=== PATIENT | female | born 1950 | race Native Hawaiian/Other Pacific Islander ===

== ENCOUNTER 2016-10-28 14:01 | Outpatient (CLI) | payer OTHER ==
[~2016-10-28 14:01] MED LIST: CARV3.12 PO; DIOVAN HC1 PO; FURO40TA93 PO; HYDRALAZINE25 MG PO; LEVO0.0723 PO; OMEPRAZOLE40 MG OR; RANI150T78 PO; SPIRONOLACT25 MG PO
== END 2016-10-28 23:38 | disposition home or self-care (01) ==
LOC: RAD 14:01
DX: M25.531 Pain in right wrist (principal); M25.532 Pain in left wrist

== ENCOUNTER 2017-07-23 13:43 | Outpatient (CLI) | payer OTHER | END 2017-07-23 21:12 | disposition home or self-care (01) | LOC: RAD 13:43 | DX: M79.642 Pain in left hand (principal) ==

== ENCOUNTER 2017-10-26 11:58 | Outpatient (CLI) | payer OTHER ==
[2017-10-26 13:04] LABS: POTASSIUM 5.1 mmol/L (3.6-5.2)
[2017-10-26 13:24] LABS: PLATELET COUNT 206 K/uL (152-353)
== END 2017-10-26 19:41 | disposition home or self-care (01) ==
LOC: LABW 11:58
PROVIDERS: Internal Medicine Nephrology
DX: I12.9 Hypertensive chronic kidney disease with stage 1 through stage 4 chronic kidney disease, or unspecified chronic kidney disease (principal); N18.3 Chronic kidney disease, stage 3 (moderate)
CPT/HCPCS: 80053; 82570; 84100; 84155; 85027

== ENCOUNTER 2018-03-22 13:27 | Outpatient (CLI) | payer OTHER ==
[2018-03-22 13:48] LABS: PLATELET COUNT 236 K/uL (152-353)
[2018-03-22 14:08] LABS: POTASSIUM 4.3 mmol/L (3.6-5.2)
== END 2018-03-22 22:42 | disposition home or self-care (01) ==
LOC: LABW 13:27
PROVIDERS: Internal Medicine Nephrology
DX: I12.9 Hypertensive chronic kidney disease with stage 1 through stage 4 chronic kidney disease, or unspecified chronic kidney disease (principal); N18.3 Chronic kidney disease, stage 3 (moderate)
CPT/HCPCS: 36415; 80053; 80061; 82570; 84155; 85027

== ENCOUNTER 2018-07-05 11:16 | Outpatient (CLI) | payer OTHER ==
[2018-07-05 11:33] LABS: PLATELET COUNT 157 K/uL (152-353)
[2018-07-05 11:41] LABS: POTASSIUM 4.6 mmol/L (3.6-5.2)
== END 2018-07-05 19:57 | disposition home or self-care (01) ==
LOC: LABW 11:16
PROVIDERS: Internal Medicine Nephrology
DX: N18.3 Chronic kidney disease, stage 3 (moderate) (principal); I10 Essential (primary) hypertension
CPT/HCPCS: 36415; 80048; 80061; 85027

== ENCOUNTER 2019-11-02 10:52 | Outpatient (CLI) | payer OTHER, MEDICARE | END 2019-11-02 20:22 | disposition home or self-care (01) | LOC: RAD 10:52 | DX: M79.672 Pain in left foot (principal) ==

== ENCOUNTER 2020-01-16 12:11 | Outpatient (CLI) | payer OTHER, MEDICARE ==
[2020-01-16 12:33] LABS: PLATELET COUNT 198 K/uL (152-353)
[2020-01-16 12:43] LABS: POTASSIUM 5.2 mmol/L (3.6-5.2)
== END 2020-01-16 22:58 | disposition home or self-care (01) ==
LOC: LABW 12:11
PROVIDERS: Internal Medicine Nephrology
DX: I35.8 Other nonrheumatic aortic valve disorders (principal); N18.3 Chronic kidney disease, stage 3 (moderate); I12.9 Hypertensive chronic kidney disease with stage 1 through stage 4 chronic kidney disease, or unspecified chronic kidney disease
CPT/HCPCS: 36415; 80053; 82306; 82570; 83970; 84100; 84155; 85027

== ENCOUNTER 2020-10-30 15:20 | Outpatient (CLI) | payer OTHER, MEDICARE | END 2020-10-30 21:38 | disposition home or self-care (01) | LOC: RAD 15:20 | PROVIDERS: ATTEND Nurse Practitioner | DX: M25.572 Pain in left ankle and joints of left foot (principal) ==

== ENCOUNTER 2021-09-21 13:41 | Emergency (ER) | payer OTHER, MEDICARE ==
[~2021-09-21] VITALS: Ht 172.7 cm; Wt 72.6 kg
[2021-09-21 15:15] VITALS: BP 210/92; TEMP 98.6
== END 2021-09-21 15:15 | disposition home or self-care (01) ==
LOC: ED 13:41
PROC: 3E0U3BZ Introduction of Anesthetic Agent into Joints, Percutaneous Approach (ICD-10-PCS; principal; 2021-09-21)
PROC: 3E0U33Z Introduction of Anti-inflammatory into Joints, Percutaneous Approach (ICD-10-PCS; 2021-09-21)
DX: M70.62 Trochanteric bursitis, left hip (principal); I10 Essential (primary) hypertension
CPT/HCPCS: 96372; 99283; J1100; J1885; J3490

== ENCOUNTER 2021-09-25 11:11 | Emergency (ER) | payer OTHER, MEDICARE ==
[~2021-09-25] VITALS: Ht 172.7 cm; Wt 72.6 kg
[2021-09-25 15:00] VITALS: BP 130/83; TEMP 97.8
== END 2021-09-25 15:00 | disposition home or self-care (01) ==
LOC: ED 11:11
DX: M54.59 Other low back pain (principal); G89.29 Other chronic pain; M51.37 Other intervertebral disc degeneration, lumbosacral region; M25.552 Pain in left hip; R29.6 Repeated falls
CPT/HCPCS: 96372; 99283; J2270; J2550

== ENCOUNTER 2021-10-31 10:44 | Outpatient (CLI) | payer OTHER, MEDICARE | END 2021-10-31 20:46 | disposition home or self-care (01) | LOC: RAD 10:44 | PROVIDERS: ATTEND Internal Medicine Nephrology | DX: E03.8 Other specified hypothyroidism (principal); I35.8 Other nonrheumatic aortic valve disorders; M10.9 Gout, unspecified; N17.9 Acute kidney failure, unspecified; N18.4 Chronic kidney disease, stage 4 (severe) ==

== ENCOUNTER 2021-11-07 14:48 | Emergency (ER) | payer OTHER, MEDICARE ==
[~2021-11-07] VITALS: Ht 172.7 cm; Wt 72.6 kg
[2021-11-07 15:11] LABS: PLATELET COUNT 123 K/uL (152-353)
[2021-11-07 15:24] LABS: POTASSIUM 3.7 mmol/L (3.6-5.2)
[2021-11-07 18:05] VITALS: BP 101/65; TEMP 97.7
== END 2021-11-07 18:05 | disposition short-term general hospital (02) ==
LOC: ED 14:48
PROVIDERS: Emergency Medicine
PROC: 0T9B70Z Drainage of Bladder with Drainage Device, Via Natural or Artificial Opening (ICD-10-PCS; principal; 2021-11-07)
DX: R79.89 Other specified abnormal findings of blood chemistry (principal); N19 Unspecified kidney failure; R53.83 Other fatigue; Z11.52 Encounter for screening for COVID-19; Z98.890 Other specified postprocedural states; Z79.899 Other long term (current) drug therapy; Z51.81 Encounter for therapeutic drug level monitoring
CPT/HCPCS: 51702; 80053; 80307; 81000; 83880; 84484; 85027; 85379; 85610; 85730; 87635; 93005; 96360; 96361; 96375; 99284; J2310; U0003

== ENCOUNTER 2022-01-23 12:12 | Emergency (ER) | payer OTHER, MEDICARE ==
[~2022-01-23] VITALS: Ht 172.7 cm; Wt 72.6 kg
[2022-01-23 12:47] VITALS: BP 87/55
== END 2022-01-23 13:01 | disposition home or self-care (01) ==
LOC: ED 12:12
DX: M54.2 Cervicalgia (principal); M79.18 Myalgia, other site
CPT/HCPCS: 96374; 99284; J2360

== ENCOUNTER 2022-03-27 13:40 | Emergency (ER) | payer OTHER, MEDICARE ==
[~2022-03-27] VITALS: Ht 172.7 cm; Wt 49.0 kg
[2022-03-27 13:50] VITALS: TEMP 97.6
[2022-03-27 14:22] LABS: PLATELET COUNT 104 K/uL (152-353)
[2022-03-27 14:45] LABS: POTASSIUM 2.4 mmol/L (3.6-5.2)
[2022-03-27 18:00] VITALS: BP 164/73
== END 2022-03-27 18:07 | disposition short-term general hospital (02) ==
LOC: ED 13:40
PROVIDERS: Emergency Medicine
DX: E87.6 Hypokalemia (principal); I21.4 Non-ST elevation (NSTEMI) myocardial infarction; N18.6 End stage renal disease; Z99.2 Dependence on renal dialysis
CPT/HCPCS: 36415; 80048; 83880; 84484; 85027; 87635; 93005; 96365; 99284; U0003

== ENCOUNTER 2022-10-24 14:09 | Outpatient (CLI) | payer OTHER | END 2022-10-24 19:18 | disposition home or self-care (01) | LOC: LAB 14:09 | PROVIDERS: ATTEND Physician Assistant Medical | DX: D69.6 Thrombocytopenia, unspecified (principal) | CPT/HCPCS: 86022 ==

== ENCOUNTER 2022-10-27 12:02 | Outpatient (CLI) | payer OTHER ==
[2022-10-27 13:29] LABS: PLATELET COUNT 66 K/uL (152-353)
== END 2022-10-27 19:24 | disposition home or self-care (01) ==
LOC: LAB 12:02
PROVIDERS: ATTEND Physician Assistant Medical
DX: D64.89 Other specified anemias (principal)
CPT/HCPCS: 85027

== ENCOUNTER 2023-01-28 14:24 | Outpatient (CLI) | payer OTHER | END 2023-01-28 18:58 | disposition home or self-care (01) | LOC: LAB 14:24 | PROVIDERS: ATTEND Nurse Practitioner Family | DX: R21 Rash and other nonspecific skin eruption (principal) | CPT/HCPCS: 82085; 82550; 86038 ==

== ENCOUNTER 2023-02-14 16:11 | Emergency (ER) | payer OTHER ==
[~2023-02-14] VITALS: Ht 172.7 cm; Wt 31.8 kg
[2023-02-14 16:16] VITALS: BP 138/105; TEMP 94.1
== END 2023-02-14 17:04 | disposition expired ==
LOC: ED 16:19
DX: I46.9 Cardiac arrest, cause unspecified (principal); N18.6 End stage renal disease
CPT/HCPCS: 99285; 99292